=== PATIENT | female | born 1980 | race Caucasian/White ===

== ENCOUNTER 2018-03-03 06:59 | Day surgery (SDC) | payer OTHER ==
[2018-02-13 15:03] VITALS: BMI 24.2
[2018-03-03] MEDS ORDERED: ONDANSETRON 4 MG/2 ML VIAL ONE ×2 (08:24→08:41)
[2018-03-03] MEDS ORDERED: DEXAMETHASONE SOD PHOSPHATE 4 MG/1 ML VIAL ONE ×2 (08:24→08:41)
[2018-03-03] MEDS ORDERED: MIDAZOLAM HCL 2 MG/2 ML SINGLE DOSE VIAL ONE (08:25)
[2018-03-03] MEDS ORDERED: BUPIVACAINE LIPOSOME/PF (EXPAREL) 266 MG/20 ML VIAL ONE (08:25)
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
[2018-03-03] MEDS ORDERED: PROPOFOL 20 ML ONE ×2 (08:41→10:29)
[2018-03-03] MEDS ORDERED: SODIUM CHLORIDE 0.9% P/F 10 ML VIAL IJ ONE (08:41)
[2018-03-03] MEDS ORDERED: ceFAZolin SODIUM 1 GM VIAL ONE (08:41)
[2018-03-03] MEDS ORDERED: LIDOCAINE HCL/PF 2% SDV 5ML VIAL ONE (08:41)
[2018-03-03] MEDS ORDERED: VANCOMYCIN 1,000 MG VIAL (RESTRICTED TO ID ONLY) ONE (08:48)
[2018-03-03] MEDS ORDERED: ePHEDrine SULFATE 50 MG/1 ML AMPULE ONE (09:39)
[2018-03-03] MEDS ORDERED: oxyCODONE HCL 5 MG TABLET PO PRN ×2 (10:31)
[2018-03-03] MEDS ORDERED: ONDANSETRON 4 MG/2 ML VIAL IVPUSH PRN (10:31)
[2018-03-03] MEDS ORDERED: TRANEXAMIC ACID 1000 MG/10 ML VIAL ONE (10:45)
[2018-03-03] MEDS ORDERED: LACTATED RINGERS SOLUTION 1,000 ML IV SCH (10:45)
--- NOTE | 2018-03-03 11:28 | DS ---
Physical Examination Vital Signs: Vital Signs Temperature 97.6 F 03/03/18 07:22 Pulse Rate 80 03/03/18 07:22 Respiratory Rate 18 03/03/18 07:22 Blood Pressure 123/77 03/03/18 07:22 O2 Sat by Pulse Oximetry (%) 99 03/03/18 07:28 Discharge Summary Reason For Visit: ACL TEAR Condition: Good - Instructions Diet, Activity, Other Instructions: Post Operative Instructions: ACL Reconstruction Dr. Daniel Raya 1. Pain following an ACL reconstruction is variable and can be significant. Some patients will have more pain than others. You have been provided with a prescription for medication that contains a narcotic. You are not allowed to drive while on this medication. Feel free to take Tylenol and/or medications such as Ibuprofen or Naprosyn in addition to the pain medicine if you do not have any problems with the NSAID class of medications. PLEASE TAKE ASPIRIN 81 MG TWICE A DAY FOR TWO WEEKS TO MINIMIZE RISKS OF BLOOD CLOTS 2. You should not remove the bandages for 48 hours unless directed otherwise. You may shower at that point. You are not allowed to bathe or go swimming until the sutures are removed. Put band-aids on the sutures after your shower and do not put any creams or lotions over the incisions. 3. You are not allowed to put all your weight on the leg. You can bend your knee. You should use crutches for assistance unless directed otherwise. 4. Getting the knee straight is your most important goal during the first 72 hours following an ACL reconstruction. Try not to lie down with a pillow under your knee. Instead the pillow should be under your ankle, thus allowing you to push your knee straight down into the bed. This is a very important milestone to achieve before your first post-surgery visit with me. 5. Swelling around the knee is normal following an ACL reconstruction. 6. The area around the knee and along the front of your leyva will also become swollen and black and blue. 7. Apply ice to the knee for 15 min every hour or so. You may continue this for as many days as you like. 8. Please call the office to schedule a visit to have your sutures removed. 9. If for any reason you believe you may have an infection or are concerned, please feel free to call me. I can be reached through our office number 24 hours a day. 10. Please call our office with any questions; we will review the surgical findings during your post operative visit. Disposition: HOME - Home Medications Comprehensive Discharge Medication List: Ambulatory Orders Loratadine [Claritin] 10 mg PO DAILY 02/13/18
--- NOTE | 2018-03-03 11:28 | OP ---
Operative Note - Note: Operative Date: 03/03/18 Pre-Operative Diagnosis: left knee ACL tear, MMT, cartilage defect [facility] [place] Operation: LKA, ACLR (Allograft), Cartilage-CROW- Biopsy, microfracture, partial menisectomy, partial meniscus repair Post-Operative Diagnosis: Same as Pre-op Surgeon: Daniel Raya Senior Salesforce Developer: Uma Seaman Anesthesiologist/ACTIVITIES MANAGER: Eulogio Aleman Anesthesia: General Operative Report Dictated: Yes
[2018-03-03] MEDS ORDERED: BUPIVACAINE HCL/EPINEPHRINE/PF 30 ML VIAL IJ ONE (11:54)
[2018-03-03 13:07] VITALS: TEMP 97.5
--- NOTE | 2018-03-03 13:30 | SURG ---
Surgery Software Product Specialist Note Software Product Specialist: Uma Seaman PA-C Date of Service: 03/03/18 Diagnosis: left knee ACL tear, MMT, cartilage defect [facility] [place]: [place]KA, ACLR (Allograft), Cartilage-CROW- Biopsy, microfracture, partial menisectomy, partial meniscus repair I was present for the entirety of the operative procedure. For further detail, please refer to operative report. Visit type - Case Type Case Type: Scheduled - Emergency Emergency Visit: No - New patient This patient is new to me today: Yes Date on this admission: 03/03/18
[2018-03-03 13:39] VITALS: BP 126/68; PULSE 78
--- NOTE | 2018-03-10 15:21 | PATH ---
Surgical Pathology Report Patient Name: AYESHA CISNEROS [facility]. Rec. #: [id number] /Age/Gender: 1980 (Age: 37) / F Account: [id number] Location: [facility] Taken: 03/03/2018 Received: 03/03/2018 Reported: 03/10/2018 Physicians: Daniel Raya M.D. Specimen(s) Received A: LEFT KNEE SHAVINGS B: LEFT KNEE MENISCUS Clinical History Left ACL tear Final Diagnosis A. KNEE, LEFT, ARTHROSCOPIC SHAVINGS: FIBROSYNOVIAL TISSUE SHOWING CHRONIC INFLAMMATION AND REACTIVE HYPERPLASIA. CARTILAGE AND BONE WITH NO PATHOLOGIC FINDINGS. B. MENISCUS, LEFT KNEE, EXCISION: FIBROCOLLAGENOUS TISSUE. Electronically Signed Trinh Gomez M.D. Gross Description A. Received in formalin, labeled "shavings left knee," is a 3.0 x 2.5 x 0.4 cm. aggregate of franco-yellow soft tissue fragments. A cordage sales representative portion is submitted in one cassette. B. Received in formalin labeled "left knee meniscus," is a 1.4 x 1.2 x 0.2 cm franco-yellow portion of fibrous tissue. The specimen is sectioned and entirely submitted in one cassette. JAMES03/03/2018 and apolonia03/03/2018
== END 2018-03-03 13:40 | disposition home or self-care (01) ==
LOC: FASU 06:59
PROVIDERS: ATTEND Orthopaedic Surgery
PROC: 0SBD4ZZ Excision of Left Knee Joint, Percutaneous Endoscopic Approach (ICD-10-PCS; 2018-03-03)
PROC: 0SQD4ZZ Repair Left Knee Joint, Percutaneous Endoscopic Approach (ICD-10-PCS; 2018-03-03)
PROC: 0SQD4ZZ Repair Left Knee Joint, Percutaneous Endoscopic Approach (ICD-10-PCS; 2018-03-03)
PROC: 0SQD4ZZ Repair Left Knee Joint, Percutaneous Endoscopic Approach (ICD-10-PCS; 2018-03-03)
PROC: 0MRP47Z Replacement of Left Knee Bursa and Ligament with Autologous Tissue Substitute, Percutaneous Endoscopic Approach (ICD-10-PCS; principal; 2018-03-03 09:47)
DX: S83.512A Sprain of anterior cruciate ligament of left knee, initial encounter (principal); S83.242A Other tear of medial meniscus, current injury, left knee, initial encounter; M24.10 Other articular cartilage disorders, unspecified site; X58.XXXA Exposure to other specified factors, initial encounter; Y93.89 Activity, other specified; Y92.89 Other specified places as the place of occurrence of the external cause
CPT/HCPCS: 73560-TC-LT-FY; 84703; 88304-TC; 94760

== ENCOUNTER 2018-06-23 09:27 | Day surgery (SDC) | payer OTHER ==
[2018-06-12 14:35] VITALS: BMI 25.8
[2018-06-23] MEDS ORDERED: MIDAZOLAM HCL 2 MG/2 ML SINGLE DOSE VIAL ONE ×2 (11:59→12:07)
[2018-06-23] MEDS ORDERED: BUPIVACAINE LIPOSOME/PF (EXPAREL) 266 MG/20 ML VIAL ONE (11:59)
[2018-06-23] MEDS ORDERED: THROMBIN (RECOMBINANT) 5,000 UNIT VIAL TP ONE (12:05)
[2018-06-23] MEDS ORDERED: BUPIVACAINE HCL/PF 2.5 MG/ML - 30 ML VIAL IJ ONE (12:24)
[2018-06-23] MEDS ORDERED: TRANEXAMIC ACID 1000 MG/10 ML VIAL ONE ×2 (12:34→13:24)
[2018-06-23] MEDS ORDERED: SODIUM CHLORIDE 0.9% P/F 10 ML VIAL IJ ONE (12:34)
[2018-06-23] MEDS ORDERED: LIDOCAINE HCL/PF 2% SDV 5ML VIAL ONE (12:34)
[2018-06-23] MEDS ORDERED: ceFAZolin SODIUM 1 GM VIAL ONE (12:34)
[2018-06-23] MEDS ORDERED: ONDANSETRON 4 MG/2 ML VIAL ONE ×2 (12:34→15:08)
[2018-06-23] MEDS ORDERED: DEXAMETHASONE SOD PHOSPHATE 4 MG/1 ML VIAL ONE (12:34)
[2018-06-23] MEDS ORDERED: BUPIVACAINE HCL/EPINEPHRINE/PF 30 ML VIAL IJ ONE (12:54)
[2018-06-23] MEDS ORDERED: oxyCODONE HCL 5 MG TABLET PO PRN ×2 (14:02)
[2018-06-23] MEDS ORDERED: ONDANSETRON 4 MG/2 ML VIAL IVPUSH PRN (14:02)
[2018-06-23] MEDS ORDERED: LACTATED RINGERS SOLUTION 1,000 ML IV SCH (14:15)
[2018-06-23] MEDS ORDERED: KETOROLAC TROMETHAMINE 30 MG/1 ML VIAL ONE (14:34)
--- NOTE | 2018-06-23 14:50 | OP ---
Operative Note - Note: Operative Date: 06/23/18 Pre-Operative Diagnosis: Left knee medial femoral condyle cartilage defect Operation: Left knee CROW cartilage regeneration Post-Operative Diagnosis: Same as Pre-op Surgeon: Daniel Raya Boat Driver: Jose Sheets Anesthesiologist/BUTTERMAKER CONTINUOUS CHURN: Eulogio Aleman Anesthesia: General Operative Report Dictated: Yes
--- NOTE | 2018-06-23 14:50 | DS ---
Physical Examination Vital Signs: Vital Signs Temperature 98.3 F 06/23/18 10:21 Pulse Rate 76 06/23/18 10:21 Respiratory Rate 16 06/23/18 10:21 Blood Pressure 135/81 06/23/18 10:21 O2 Sat by Pulse Oximetry (%) 98 06/23/18 10:31 Discharge Summary Reason For Visit: LEFT KNEE MEDIAL CONDLYE CARTILAGE DEFECT Condition: Good - Instructions Diet, Activity, Other Instructions: Post Operative Instructions: CARTILAGE REGENERATION Dr Daniel Raya 1. Pain following an arthroscopy is variable. Some patients will have more pain than others. You have been provided with a prescription for medication that contains a narcotic. You are not allowed to drive while on this medication. You should take Tylenol (Acetaminophen) when (or instead of) taking the pain medication. PLEASE TAKE 325MG OF ASPIRIN, TWICE A DAY, STARTING TONIGHT TO DECREASE THE RISK OF DEVELOPING A BLOOD CLOT. 2. You should not have to remove the bandages. You may shower in 24 hours as long as the bandage is adherent around the incision. You are not allowed to bathe. . 3. You are NOT allowed to put weight on the leg for 4 weeks. You should start to bend your knee on Tuesday. You should bend it to 45 degrees (no more than that) 10 times, each hour unless you have a CPM machine. If you have a CPM machine you should have the machine set to bend the knee 0-50 degrees and you should be in the machine for 4-6 hours a day. It does not need to be all at once... you can spread the amount of time in the CPM across the entire day. 4. You will be in a knee immobilizer as all times, except when performing your motion exercises. 5. Please call the office to schedule a visit to have your incision checked 6. If for any reason you believe you may have an infection or are concerned, please feel free to call me. I can be reached through our office number 24 hours a day. 7. Please call our office with any questions; we will review the surgical findings during your post operative visit. Disposition: HOME - Home Medications Comprehensive Discharge Medication List: Ambulatory Orders Loratadine [Claritin] 10 mg PO DAILY 02/13/18 Fluoxetine HCl [Prozac] 10 mg PO HS 06/12/18
--- NOTE | 2018-06-23 16:36 | SURG ---
Surgery Fuse Maker Note Fuse Maker: oJse Sheets PA-C Date of Service: 06/23/18 Diagnosis: Left knee medial femoral condyle cartilage defect Procedure: Left knee CROW cartilage regeneration I was present for the entirety of the operative procedure. For further detail, please refer to operative report. Visit type - Case Type Case Type: Scheduled - New patient This patient is new to me today: Yes Date on this admission: 06/23/18
[2018-06-23 17:09] VITALS: TEMP 98
[2018-06-23 17:11] VITALS: BP 116/68; PULSE 80
--- NOTE | 2018-06-29 12:06 | PATH ---
Surgical Pathology Report Patient Name: AYESHA CISNEROS Med. Rec. #: [id number] /Age/Gender: 1980 (Age: 38) / F Account: [id number] Location: [facility] Taken: 06/26/2018 Received: 06/26/2018 Reported: 06/29/2018 Physicians: Daniel Raya M.D. Specimen(s) Received FIBROCARTILAGE LEFT KNEE Clinical History Left knee medial condyle cartilage defect Final Diagnosis FIBROCARTILAGE, LEFT KNEE, EXCISION: FIBROCARTILAGE. Electronically Signed Trinh Gomez M.D. Gross Description Received in formalin labeled "fibrocartilage left knee," is a 1.2 x 1.2 x 0.2 cm aggregate of franco-ulloa fragments of fibrocartilage. The specimen is entirely submitted in one cassette. /06/26/201806/26/2018
== END 2018-06-23 16:50 | disposition home or self-care (01) ==
LOC: FASU 09:27
PROVIDERS: ATTEND Orthopaedic Surgery
PROC: 0SJD4ZZ Inspection of Left Knee Joint, Percutaneous Endoscopic Approach (ICD-10-PCS; 2018-06-23)
PROC: 0SUD07Z Supplement Left Knee Joint with Autologous Tissue Substitute, Open Approach (ICD-10-PCS; principal; 2018-06-23 13:09)
DX: M94.8X6 Other specified disorders of cartilage, lower leg (principal)
CPT/HCPCS: 84703; 88304-TC; 94760